=== PATIENT | male | born 1990 ===

== ENCOUNTER 2016-12-21 08:56 | Day surgery (SDC) | payer MEDICARE, OTHER ==
[2016-06-01 07:54] VITALS: BMI 21.5
[2016-12-21 10:06] VITALS: BP 99/48; PULSE 47; RESP 16; TEMP 98
== END 2016-12-21 10:41 | disposition home or self-care (01) ==
LOC: OPSURG 08:56 → ENDO 08:56 → OPSURG 10:41
PROVIDERS: ATTEND Specialist
DX: K94.23 Gastrostomy malfunction (principal); Q87.2 Congenital malformation syndromes predominantly involving limbs; R13.10 Dysphagia, unspecified; Y83.3 Surgical operation with formation of external stoma as the cause of abnormal reaction of the patient, or of later complication, without mention of misadventure at the time of the procedure

== ENCOUNTER 2017-09-20 09:21 | Day surgery (SDC) | payer MEDICARE, OTHER ==
[2016-06-01 07:54] VITALS: BMI 21.5
[2017-09-20 09:47] VITALS: RESP 16
[2017-09-20 10:42] VITALS: BP 124/55; PULSE 50; TEMP 97.7
== END 2017-09-20 10:35 | disposition home or self-care (01) ==
LOC: OPSURG 09:21
PROVIDERS: ATTEND Specialist
DX: K94.23 Gastrostomy malfunction (principal)

== ENCOUNTER 2018-03-22 11:09 | Day surgery (SDC) | payer MEDICARE, OTHER ==
[2018-03-15 11:08] VITALS: BMI 20.9
[2018-03-22 11:37] LABS: BASO # 0.02 K/mm3 (0.0-2.0); BASO % 0.5 % (0.0-3.0); EOS # 0.4 (0.0-0.7); EOS % 9.5 % (1.5-5.0); GRAN # 1.46 (1.4-6.5); GRAN % 38.6 % (50.0-68.0); HEMOGLOBIN 13.7 g/dL (14.0-18.0); LYMPH # 1.6 (1.2-3.4); LYMPH % 42.7 % (22.0-35.0); MEAN CELL VOLUME 91.5 fl (80.0-105.0); MEAN CORPUSCULAR HEMOGLOBIN 30.6 pg (25.0-35.0); MEAN CORPUSCULAR HGB CONC 33.4 g/dl (31.0-37.0); MONO # 0.3 (0.1-0.6); MONO % 8.7 % (1.0-6.0); RBC 4.48 10^6/uL (3.5-6.1); RED CELL DISTRIBUTION WIDTH 14.3 % (11.5-14.5); WHITE BLOOD COUNT 3.8 10^3/uL (4.5-11.0)
[2018-03-22 11:47] LABS: BLOOD UREA NITROGEN 15 mg/dL (7-21); CALCIUM 9.7 mg/dL (8.4-10.5); GFR NON-AFRICAN AMERICAN > 60
[2018-03-22 11:50] LABS: INR 1.09; PARTIAL THROMBOPLASTIN TIME 31.9 Seconds (25.1-36.5); PROTHROMBIN TIME 12.6 SECONDS (9.4-12.5)
[2018-03-22] MEDS ORDERED: Lidocaine 2% Inj (20ml) ONE ×2 (13:03→13:13)
[2018-03-22] MEDS ORDERED: Midazolam 2 MG/2 ML VIAL ONE (14:04)
[2018-03-22] MEDS ORDERED: Oxycodone/Acetaminophen 5/325 mg Tab PO PRN (14:59)
[2018-03-22] MEDS ORDERED: Sodium Chloride 0.45% 1,000 ML IV SCH (15:00)
[2018-03-22 15:35] VITALS: PULSE 48
[2018-03-22 16:02] VITALS: RESP 20; TEMP 97.5; O2SAT 96
[2018-03-22 19:12] VITALS: BP 110/57
--- NOTE | 2018-03-22 19:29 | VASCULAR ---
PROCEDURE: Ultrasound and fluoroscopic right internal jugular venous access port. CLINICAL HISTORY: Hypogammaglobulinemia. Needs port for IV gamma globulin infusion PHYSICIAN(S): Chase Paris M.D. TECHNIQUE: The relative risks and indications of the procedure were explained to the patient's aunts and consent obtained. The patient was placed supine on the arteriogram table and the right neck and chest prepped and draped in the usual sterile fashion. Conscious sedation monitoring was provided throughout the procedure by a nurse. Antibiotics were given prior to the procedure. Under direct ultrasound guidance, the right internal jugular vein was punctured with a micro-puncture set. A 0.035 angled Glidewire was advanced into the IVC. A 4 cm incision was made below the right clavicle and the pocket blunted dissected. A 8 Portuguese single-lumen catheter, 21 cm long, was advanced to the SVC/RA junction. The catheter was trimmed and attached to the port. The port aspirates and injects easily. The port was placed in the pocket and closed in 2 layers. The patient tolerated the procedure well. IMPRESSION: Ultrasound and fluoroscopically placed right internal jugular venous access port.
== END 2018-03-22 17:00 | disposition home or self-care (01) ==
LOC: SDS 11:09
PROVIDERS: ATTEND Radiology Vascular & Interventional Radiology
DX: D80.1 Nonfamilial hypogammaglobulinemia (principal); J45.909 Unspecified asthma, uncomplicated; F84.0 Autistic disorder; Q87.2 Congenital malformation syndromes predominantly involving limbs
CPT/HCPCS: 36415; 36561; 76937; 77001; 80048; 85025; 85610; 85730; 99152; C1769; C1788; J0690; J1644; J2250; J2405; J3010; J7030

== ENCOUNTER 2018-05-23 08:36 | Day surgery (SDC) | payer MEDICARE, OTHER ==
[2018-04-23 10:24] VITALS: BMI 17.7
[2018-05-23 09:37] VITALS: BP 95/63; PULSE 52; RESP 14; TEMP 98
== END 2018-05-23 09:30 | disposition home or self-care (01) ==
LOC: OPSURG 08:36
PROVIDERS: ATTEND Specialist
DX: K94.23 Gastrostomy malfunction (principal); R13.12 Dysphagia, oropharyngeal phase; Q39.0 Atresia of esophagus without fistula; Q87.2 Congenital malformation syndromes predominantly involving limbs

== ENCOUNTER 2018-07-30 11:31 | Day surgery (SDC) | payer MEDICARE, OTHER ==
[2018-07-26 16:52] VITALS: BMI 19.3
[2018-07-30] MEDS ORDERED: Lidocaine PF 2% (5 ml) Inj (For Cardiac Arrhy) ONE (12:18)
[2018-07-30 12:30] LABS: BASO # 0.05 K/mm3 (0.0-2.0); BASO % 0.9 % (0.0-3.0); EOS # 0.8 (0.0-0.7); EOS % 14.7 % (1.5-5.0); HEMOGLOBIN 12.8 g/dL (14.0-18.0); LYMPH # 1.6 (1.2-3.4); LYMPH % 28.7 % (22.0-35.0); MEAN CELL VOLUME 92.5 fl (80.0-105.0); MEAN CORPUSCULAR HEMOGLOBIN 30.8 pg (25.0-35.0); MEAN CORPUSCULAR HGB CONC 33.2 g/dl (31.0-37.0); MONO # 0.5 (0.1-0.6); MONO % 8.4 % (1.0-6.0); RBC 4.16 10^6/uL (3.5-6.1); WHITE BLOOD COUNT 5.6 10^3/uL (4.5-11.0)
[2018-07-30 12:31] VITALS: O2SAT 100
[2018-07-30 12:34] LABS: INR 1.12; PARTIAL THROMBOPLASTIN TIME 34.3 Seconds (26.9-38.3); PROTHROMBIN TIME 12.7 SECONDS (9.4-12.5)
[2018-07-30 12:38] LABS: BLOOD UREA NITROGEN 13 mg/dL (7-21); CALCIUM 9.5 mg/dL (8.4-10.5); GFR NON-AFRICAN AMERICAN > 60
[2018-07-30] MEDS ORDERED: Midazolam 2 MG/2 ML VIAL ONE (13:16)
[2018-07-30] MEDS ORDERED: Oxycodone/Acetaminophen 5/325 mg Tab PO PRN (13:41)
[2018-07-30] MEDS ORDERED: Sodium Chloride 0.45% 1,000 ML IV SCH (13:45)
[2018-07-30 14:39] VITALS: PULSE 66; RESP 18; TEMP 98
[2018-07-30 16:22] VITALS: BP 90/60
--- NOTE | 2018-07-30 19:41 | VASCULAR ---
PROCEDURE: Removal of tunneled right internal jugular venous access port. CLINICAL HISTORY: Hypo gamma globulinemia. Infected right IJ port. Needs removal PHYSICIAN(S): Chase Paris M.D. TECHNIQUE: The relative risks and indications of the procedure were explained to the patient and his mother and consent obtained. The patient was placed supine on the arteriogram table and the right neck and chest prepped and draped usual sterile fashion. Conscious sedation and monitoring were provided throughout the procedure by a nurse. Antibiotics were given prior to the procedure. 1% Xylocaine was used to anesthetize the skin and soft tissues at the port. A 4 cm incision was made. The port was bluntly dissected and removed. The catheter was removed under fluoroscopic guidance. No retained catheter fragments were seen. The pocket was lavaged with normal saline. The pocket was closed in 2 layers. The patient tolerated the procedure well. IMPRESSION: 1. Removal of tunneled right internal jugular venous access port.
== END 2018-07-30 16:25 | disposition home or self-care (01) ==
LOC: SDS 11:31
PROVIDERS: ATTEND Radiology Vascular & Interventional Radiology
DX: T80.219A Unspecified infection due to central venous catheter, initial encounter (principal)
CPT/HCPCS: 36415; 36561; 76937; 77001; 80048; 85025; 85610; 85730; 99152; J1644; J2250; J2405; J3010; J7030; J7040